=== PATIENT | male | born 1990 | race Caucasian/White ===

== ENCOUNTER 2018-09-13 10:35 | Emergency (ER) | payer OTHER ==
[~2018-09-13] VITALS: Ht 170.2 cm; Wt 86.4 kg
[2018-09-13 10:35] VITALS: BP 144/89
[2018-09-13] MEDS ORDERED: LIDO1SOL7 PO (12:16)
[2018-09-13] MEDS ORDERED: LIDOCAINE VISCOUS 2% SOLN 15ML UDC SS ONE (12:30)
== END 2018-09-13 12:28 | disposition home or self-care (01) ==
LOC: M ED 10:35
DX: J02.8 Acute pharyngitis due to other specified organisms (principal)